=== PATIENT | female | born 1970 | race Caucasian/White ===

== ENCOUNTER 2023-09-26 20:19 | Emergency (ER) | payer BC ==
[~2023-09-26] VITALS: Ht 160 cm; Wt 85.0 kg
[2023-09-26 21:21] LABS: BASOPHILS # (AUTO) 0.1 X10'3 (0-0.2); BASOPHILS % (AUTO) 0.6 % (0-1); EOSINOPHILS # (AUTO) 0.6 X10'3 (0-0.9); EOSINOPHILS % (AUTO) 6.1 % (0-6); HEMATOCRIT 28.2 % (35.0-45.0); HEMOGLOBIN 8.4 g/dl (12.0-16.0); LYMPHOCYTES # (AUTO) 2.3 X10'3 (1.1-4.8); LYMPHOCYTES % (AUTO) 24.5 % (21-51); MEAN CORPUSCULAR HEMOGLOBIN 16.9 PG (27.0-31.0); MEAN CORPUSCULAR HGB CONC 29.9 g/dL (33.0-36.5); MEAN CORPUSCULAR VOLUME 56.5 FL (78-98); MEAN PLATELET VOLUME 8.8 FL (7.4-10.4); MONOCYTES # (AUTO) 0.8 X10'3 (0-0.9); MONOCYTES % (AUTO) 8.6 % (2-12); NEUTROPHILS # (AUTO) 5.6 X10'3 (1.8-7.7); NEUTROPHILS % (AUTO) 60.2 % (42-75); PLATELET COUNT 252 X10'3 (140-440); RED BLOOD COUNT 4.99 X10'6 (4.20-5.60); RED CELL DISTRIBUTION WIDTH 21.7 % (11.5-14.5); WHITE BLOOD COUNT 9.2 X10'3 (4.5-11.0)
[2023-09-26 21:35] LABS: ALBUMIN 3.2 G/DL (3.4-5.0); ANION GAP 10 (8-16); BLOOD UREA NITROGEN 24 MG/DL (7-18); BUN/CREATININE RATIO 42.9 (10.0-20.0); CALCIUM 8.9 MG/DL (8.5-10.1); CHLORIDE 105 MMOL/L (99-107); CREATININE 0.56 MG/DL (0.40-0.90); ETHANOL < 10 MG/DL (<10); GLUCOSE 104 MG/DL (70-104); POTASSIUM 3.6 MMOL/L (3.5-5.1); SODIUM 141 MMOL/L (135-145); TOTAL CARBON DIOXIDE 25.7 MMOL/L (24-32); eCRCL 97 ML/MIN; eGFR > 90 ML/MIN
[2023-09-26 21:45] VITALS: TEMP 97.9
[2023-09-26 21:50] LABS: HCG SERUM QL NEGATIVE
[2023-09-26 22:07] LABS: ANISOCYTOSIS 3+; PLATELET ESTIMATE NORMAL
[2023-09-26 22:08] LABS: HYPOCHROMASIA 1+; MICROCYTOSIS 3+; POLYCHROMASIA FEW
[2023-09-26 22:10] LABS: SCHISTOCYTES FEW
[2023-09-26 23:43] VITALS: BP 141/84; PULSE 93; RESP 19; O2SAT 98
== END 2023-09-27 00:18 | disposition home or self-care (01) ==
LOC: ER 20:20
DX: I63.9 Cerebral infarction, unspecified (principal); H53.8 Other visual disturbances
CPT/HCPCS: 36415; 70450; 70480; 71045; 80048; 80320; 84484; 84703; 85008; 85025; 93005; 99285